=== PATIENT | male | born 1975 | race Two or more races ===

== ENCOUNTER 2024-08-25 21:36 | Emergency (ER) | payer MEDICAID, SELFPAY ==
[2024-08-25 21:38] VITALS: BMI 28.3
[2024-08-25 22:40] VITALS: BP 123/81; PULSE 105; RESP 16; TEMP 36.8; O2SAT 95
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
[2024-08-25 23:46] VITALS: RESP 16
== END 2024-08-25 23:47 | disposition home or self-care (01) ==
PROVIDERS: Emergency Provider Emergency Medicine; PCP Nurse Practitioner Primary Care
DX: M25.522 Pain in left elbow (principal); V89.9XXA Person injured in unspecified vehicle accident, initial encounter
CPT/HCPCS: 73080; 99283

== ENCOUNTER → 2024-12-09 | Outpatient (CLI) | payer BC, SELFPAY ==
--- NOTE | 2024-12-09 14:43 | XR_ITS ---
Examination: Shoulder,left, 3 views Technique: Shoulder AP internal rotation, AP external rotation, Y view shoulder, 3 views Exam date and time :December 09, 2024 1445 hours INDICATIONS: Left shoulder pain beginning 20 years ago FINDINGS: Moderate osteopenia Moderate narrowing glenohumeral joint No fracture or shoulder dislocation IMPRESSION: Moderate narrowing glenohumeral joint
== END | disposition home or self-care (01) ==
DX: M25.812 Other specified joint disorders, left shoulder (principal)
CPT/HCPCS: 73030

== ENCOUNTER → 2025-02-25 | Outpatient (CLI) | payer BC, SELFPAY ==
--- NOTE | 2025-02-25 15:00 | XR_ITS ---
MRI shoulder, left, without contrast. Date and time: February 25, 2025, 1544 hours INDICATIONS: Chronic shoulder pain 10 years joint clicking decreased range of motion Technique: Multiple axial, sagittal and coronal sections of the shoulder have been obtained. Siemens high-resolution 1.5 Helga MRI scanner is utilized. Axial fat-suppressed sections, TR 2350, TE 18 T2-weighted coronal fat-saturated images, TR 3500, TE 7100 T1-weighted coronal images, TR 500, TE 15 T2-weighted sagittal fat-saturated images, TR 3500, TE 57 T1-weighted sagittal sections, TR 504, TE 13. Findings: Supraspinatus tendon insertion is intact. Infraspinatus tendon insertion is intact. Subscapularis insertion is intact. Subscapularis bursa is evident. Long head of the biceps is in the bicipital groove. No definite tear of the biceps superior labral anchor is seen. Retraction of the musculotendinous junction of the rotator cuff is not seen . Tendinosis pattern is moderate. Distance between the acromium and humeral head is 6.6 mm Atrophy of the supraspinatus muscle is severe. Atrophy of the infraspinatus muscle is severe. Sagittal sections demonstrate a horizontal acromion. Acromioclavicular joint demonstrates mild osteoarthritis . Osacromiale is not identified. Moderate glenohumeral joint effusion Fraying and irregularity anterior superior labral margins Bony glenoid fossa on the sagittal sections does not demonstrate osseous defect. Occult fracture or area of avascular necrosis is not seen. Acromioclavicular joint separation is not visible. Defect in the posterolateral margin of the humeral head is not seen Impression: Rotator cuff intact Fraying and irregularity anterior superior labral margins. Mild to moderate osteoarthritis glenohumeral joint with moderate effusion
== END | disposition home or self-care (01) ==
DX: M19.012 Primary osteoarthritis, left shoulder (principal); M19.011 Primary osteoarthritis, right shoulder; M25.412 Effusion, left shoulder
CPT/HCPCS: 73221